=== PATIENT | female | born 1970 | race Two or more races ===

== ENCOUNTER 2020-04-18 03:01 | Emergency (ER) | payer MEDICAID ==
[~2020-04-18] VITALS: Ht 154.9 cm; Wt 68.0 kg
[2020-04-18 03:16] VITALS: BP 146/94
== END 2020-04-18 04:59 | disposition left against medical advice (07) ==
LOC: EDBD 03:01 → ER 03:07
DX: M25.561 Pain in right knee (principal); Z53.21 Procedure and treatment not carried out due to patient leaving prior to being seen by health care provider